=== PATIENT | female | born 1945 | race Caucasian/White ===

== ENCOUNTER → 2022-12-13 | Outpatient (CLI) | payer MEDICARE, OTHER ==
--- NOTE | 2022-12-13 09:00 | CT ---
EXAMINATION TYPE: CT brain cspine wo con CT DLP: 1435 mGycm, Automated exposure control for dose reduction was used. DATE OF EXAM: 12/13/2022 8:04 AM COMPARISON: None.. CLINICAL INDICATION:Female, 77 years old with history of R51.9 HEADACHE M54.2 CERVICALGIA; Headache, Cervicalgia TECHNIQUE: Brain: Multiple axial CT images of the brain were obtained without IV contrast. Cspine: Axial CT images from the skull base to the inferior aspect of T2 we obtained without intraven ous contrast. Coronal and sagittal reformatted images were also reviewed. FINDINGS: Brain: Extra-axial spaces: No abnormal extra-axial fluid collections. Ventricular system: Within normal limits Cerebral parenchyma: Cerebral atrophy. Remote bilateral inferior frontal lobe injuries with encephalo malacia. No acute intraparenchymal hemorrhage or mass effect. The porter-white junction is well differ entiated. Scattered hypoattenuating areas are seen within the white matter. Cerebellum: Unremarkable. Mass effect: No evidence of midline shift. Intracranial vasculature: Atherosclerotic calcifications of the intracranial vessels. Soft tissues: Normal. Calvarium/osseous structures: No depressed skull fracture. Paranasal sinuses and mastoid air cells: Clear. Aplasia of the right frontal sinus. Visualized orbits: Bilateral aphakia Cervical spine: Fracture: None. Osseous structures: Disc space narrowing with endplate sclerosis and anterior osteophytosis at C5-C6. Vertebral alignment: Minimal grade 1 anterolisthesis of C3 on C4. Spinal canal/Neural Foramina: Posterior disc osteophyte complex at C4-C5 with mild effacement of ante rior thecal sac. Central disc protrusion at C3-C4 with mild effacement of anterior thecal sac. Broad- based disc bulge at C5-C6 with mild effacement of anterior thecal sac. Eccentric left broad-based dis c bulge at C6-C7 with mild effacement of anterior thecal sac. No evidence for significant neural fora lyle stenosis. Neck soft tissues: Prevertebral soft tissues are within normal limits. Other: The airway is patent. Mild atherosclerotic calcification of the bilateral carotid bulbs. Hypod ense 8 mm nodule within the right thyroid lobe. IMPRESSION: 1. No acute intracranial process. 2. Nonspecific white matter changes, likely secondary to chronic small vessel ischemic disease. 3. 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 4. No evidence of cervical spine fracture. 5. Mild multilevel degenerative disc disease as described above.
== END | disposition home or self-care (01) ==
LOC: RADCTMAIN 07:30
PROVIDERS: ATTEND Family Medicine
DX: M50.322 Other cervical disc degeneration at C5-C6 level (principal); G93.89 Other specified disorders of brain; R90.82 White matter disease, unspecified
CPT/HCPCS: 70450; 72125

== ENCOUNTER → 2023-09-13 | Outpatient (CLI) | payer MEDICARE, OTHER ==
[2023-09-13 15:20] LABS: Basophils # (A) 0.03 X 10*3/uL (0.00-0.10); Basophils % (A) 0.6 %; Eosinophils # (A) 0.11 X 10*3/uL (0.04-0.35); Eosinophils % (A) 2.1 %; HCT 36.2 % (37.2-46.3); HGB 11.9 g/dL (12.0-15.0); Lymphocytes # (A) 1.02 X 10*3/uL (0.90-5.00); Lymphocytes % (A) 19.2 %; MCH 30.5 pg (27.0-32.0); MCHC 32.9 g/dL (32.0-37.0); MCV 92.8 FL (80.0-97.0); Mean Platelet Volume 9.8 FL (9.5-12.2); Monocytes # (A) 0.54 X 10*3/uL (0.20-1.00); Monocytes % (A) 10.2 %; NRBC Per 100 WBC 0 X 10*3/uL (0.00-0.01); Neutrophils # (A) 3.61 X 10*3/uL (1.80-7.70); Neutrophils % (A) 67.7 %; Platelet Count 316 X 10*3/uL (140-440); RDW 13.1 % (11.5-14.5); WBC 5.32 X 10*3/uL (4.50-10.00)
[2023-09-13 15:49] LABS: BUN/Creat Ratio 12.82 Ratio (12.00-20.00); Blood Urea Nitrogen 14.1 mg/dL (9.0-27.0); Carbon Dioxide 23.7 mmol/L (21.6-31.8); Chloride 97 mmol/L (96-109); Chol/HDL Ratio 1.71 Ratio; Glucose 97 mg/dL (70-110); LDL Cholesterol,Calculated 68.9 mg/dL (0.0-131.0); Potassium 5.2 mmol/L (3.5-5.5); Sodium 132 mmol/L (135-145); VLDL Calculation 18.12 mg/dL (5.00-40.00)
[2023-09-13 15:50] LABS: ALT 13 U/L (8-44); AST 20 U/L (13-35); Albumin 4.6 g/dL (3.8-4.9); Albumin/Globulin Ratio 2.19 Ratio (1.60-3.17); Alkaline Phosphatase 49 U/L (41-126); Calcium 9.9 mg/dL (8.7-10.3); Globulin 2.1 g/dL (1.6-3.3); Total Bilirubin 0.4 mg/dL (0.3-1.2); Total Protein 6.7 g/dL (6.2-8.2)
== END | disposition home or self-care (01) ==
LOC: LABWHC1 08:16
PROVIDERS: ATTEND Family Medicine
DX: Z11.59 Encounter for screening for other viral diseases (principal); I10 Essential (primary) hypertension; E78.5 Hyperlipidemia, unspecified; E87.6 Hypokalemia; E55.9 Vitamin D deficiency, unspecified
CPT/HCPCS: 36415; 80053; 80061; 82306; 85025; 86803

== ENCOUNTER → 2023-12-31 | Outpatient (CLI) | payer MEDICARE, OTHER | END | disposition home or self-care (01) | LOC: LABWHC1 07:07 | PROVIDERS: ATTEND Psychiatry & Neurology Neurology | DX: Z01.810 Encounter for preprocedural cardiovascular examination | CPT/HCPCS: 93005 ==

== ENCOUNTER 2024-09-13 14:06 | Observation (INO) | payer MEDICARE, OTHER ==
--- NOTE | 2024-09-13 14:37 | ED ---
General Adult HPI - General Chief complaint: Back Pain/Injury Stated complaint: back pain Time Seen by Provider: 09/13/24 14:18 Source: patient, EMS, RN notes reviewed Mode of arrival: EMS Limitations: no limitations - History of Present Illness Initial comments: This is a 79-year-old female with history including hypertension, hyperlipidemia and OA presenting with neighbor via EMS for back pain (10/06). Patient states she has a history of chronic back pain extending from her neck to her lumbar region. States she has a history of spinal arthritis and bulging cervical disc among other things. Patient states she currently takes hydrocodone 10 mg twice daily. Patient states she had a pain pump placed in her left abdomen on 09/10/2024, stating she must wait 1 month before the pump will be operational for pain management. Patient notes that she suffered a syncopal event at the base of her stairs last night around 2100, waking and crawling up the stairs to her phone, contacting her neighbor who stated that patient appeared very porter at the time but looks better now. Patient denies prior or current chest pain, shortness of breath, diaphoresis, dizziness. States she has been constipated recently as well. Patient received 75 mcg fentanyl and 4 mg Zofran by EMS prior to ER arrival. Patient denies fever, chills, vision changes, unilateral paresthesia/hemiplegia, urinary symptoms. Onset/Timin -: days(s) - Related Data Home Medications Medication Instructions Recorded Confirmed Alendronate Sodium [Fosamax] 70 mg PO WE 09/13/24 09/13/24 Aspirin EC [Ecotrin Low Dose] 81 mg PO DAILY 09/13/24 09/13/24 Cephalexin [Keflex] 500 mg PO TID 09/13/24 09/13/24 Famotidine [Pepcid] 40 mg PO DAILY 09/13/24 09/13/24 HYDROcodone/APAP 10-325MG [[place] 1 tab PO BID PRN 09/13/24 09/13/24 10-325] Irbesartan [Avapro] 300 mg PO DAILY 09/13/24 09/13/24 Pantoprazole Sodium [Protonix] 20 mg PO DAILY 09/13/24 09/13/24 Rosuvastatin Calcium 5 mg PO DAILY 09/13/24 09/13/24 amLODIPine [Norvasc] 2.5 mg PO DAILY 09/13/24 09/13/24 Allergies Allergy/AdvReac Type Severity Reaction Status Date / Time morphine AdvReac Itching Verified 09/13/24 18:13 Review of Systems ROS Statement: Those systems with pertinent positive or pertinent negative responses have been documented in the HPI. ROS Other: All systems not noted in ROS Statement are negative. Past Medical History Past Medical History: Hyperlipidemia, Hypertension, Osteoarthritis (OA) History of Any Multi-Drug Resistant Organisms: None Reported Past Surgical History: Hysterectomy, Orthopedic Surgery Additional Past Surgical History / Comment(s): back surgery, left wrist, right thumb Past Psychological History: No Psychological Hx Reported Smoking Status: Former smoker Past Alcohol Use History: Rare Past Drug Use History: None Reported General Exam Limitations: no limitations General appearance: alert, in distress Head exam: Present: atraumatic, normocephalic, normal inspection Eye exam: Present: normal appearance, PERRL, EOMI. Absent: scleral icterus, conjunctival injection, periorbital swelling ENT exam: Present: normal exam, mucous membranes moist Neck exam: Present: normal inspection. Absent: tenderness, meningismus, lymphadenopathy Respiratory exam: Present: normal lung sounds bilaterally. Absent: respiratory distress, wheezes, rales, rhonchi, stridor Cardiovascular Exam: Present: regular rate, normal rhythm, normal heart sounds. Absent: systolic murmur, diastolic murmur, rubs, gallop, clicks GI/Abdominal exam: Present: soft, tenderness (Positive tenderness around LLQ surgical incision site without surrounding erythema, edema, discharge, warmth.), normal bowel sounds, other (13 david noted with good alignment of laceration edges with no obvious signs of infection and LLQ.). Absent: distended, guarding, rebound, rigid Extremities exam: Present: normal inspection, full ROM, normal capillary refill. Absent: tenderness, pedal edema, joint swelling, calf tenderness Back exam: Present: normal inspection, vertebral tenderness (Patient notes diffuse spinal tenderness without obvious crepitus or step-off.), other (3 cm vertical surgical incision of left mid thoracic back with 3 david noted without surrounding erythema, warmth, tenderness, discharge.) Neurological exam: Present: alert, oriented X3, CN II-XII intact Psychiatric exam: Present: normal affect, normal mood Skin exam: Present: warm, dry, intact, normal color. Absent: rash Course Vital Signs 09/13/24 09/13/24 09/13/24 14:07 18:22 20:51 Temperature 98.8 F 98.4 F Pulse Rate 84 87 76 Respiratory 20 16 22 Rate Blood Pressure 147/76 117/64 142/66 O2 Sat by Pulse 100 98 100 Oximetry Medical Decision Making - Medical Decision Making Was pt. sent in by a medical professional or institution (, PA, [employer], urgent care, hospital, or [place] health care facility...) When possible be specific @ -No Did you speak to anyone other than the patient for history (EMS, parent, family, police, friend...)? What history was obtained from this source @ -No Did you review nursing and triage notes (agree or disagree)? Why? @ -I reviewed and agree with nursing and triage notes Were old charts reviewed (outside hosp., previous admission, EMS record, old EKG, old radiological studies, urgent care reports/EKG's, [place] health care facility records)? Report findings @ -No old charts were reviewed Differential Diagnosis (chest pain, altered mental status, abdominal pain women, abdominal pain men, vaginal bleeding, weakness, fever, dyspnea, syncope, headache, dizziness, GI bleed, back pain, seizure, CVA, palpatations, mental health, musculoskeletal)? @ -Differential Syncope: Valvular disease, hypertrophic cardiomyopathy, pulmonary embolism, tamponade, tachycardia, bradycardia, MD, hypovolemia, hemorrhage, dissection, anemia, intracranial hemorrhage, seizure, hypoglycemia, carbon monoxide poisoning, this is not meant to be an all-inclusive list. EKG interpreted by me (3pts min.). @ -Sinus rhythm with solitary PVC without ST deviation or T wave inversion. Ventricular rate 86 bpm, CONSUELO 177 ms, QRS 80 ms, QTc 396 ms. X-rays interpreted by me (1pt min.). @ -CXR shows no acute cardiopulmonary process CT interpreted by me (1pt min.). @ -Abdomen/pelvic CT shows significantly impacted rectal stool with rectal wall thickening and adjacent fat stranding indicating stercoral colitis. Moderate compression deformity of L1 vertebrae and moderate size hiatal hernia also noted. U/S interpreted by me (1pt. min.). @ -None done What testing was considered but not performed or refused? (CT, X-rays, U/S, labs)? Why? @ -None What meds were considered but not given or refused? Why? @ -Patient declined IV Toradol, endorsing concern for effect to kidney function Did you discuss the management of the patient with other professionals (professionals i.e. , PA, [employer], lab, RT, psych nurse, protective services social worker, fill plant operator, teacher, gift officer, porter sample case)? Give summary @ - Spoke to Indy Manning from [facility] for inpatient admission and surgery consults placed. Was smoking cessation discussed for >3mins.? @ -No Was critical care preformed (if so, how long)? @ -No Were there social determinants of health that impacted care today? How? (Homelessness, low income, unemployed, alcoholism, drug addiction, transportation, low edu. Level, literacy, decrease access to med. care, half-way, rehab)? @ -No Was there de-escalation of care discussed even if they declined (Discuss DNR or withdrawal of care, Hospice)? DNR status @ -No What co-morbidities impacted this encounter? (DM, HTN, Smoking, COPD, CAD, Cancer, CVA, ARF, Chemo, Hep., AIDS, mental health diagnosis, sleep apnea, morbid obesity)? @ -Hypertension, hyperlipidemia, chronic back pain Was patient admitted / discharged? Hospital course, mention meds given and route, prescriptions, significant lab abnormalities, going to OR and other pertinent info. @ -Lab work positive for leukocytosis 15.57 with left shift. Stable anemia of 11.1. Hyponatremia 128 and hyperglycemia 123. UA unremarkable. Patient in itially provided IV normal saline, Toradol and Dilaudid with pain relief noted by patient. CXR shows no acute cardiopulmonary process. Abdomen/pelvic CT shows significantly impacted rectal stool with rectal wall thickening and adjacent fat stranding indicating stercoral colitis. Moderate compression deformity of L1 vertebrae and moderate size hiatal hernia also noted. Patient received 75 mcg IV fentanyl from EMS along with 4 mg Zofran. Patient initially provided IV normal saline, Toradol and Dilaudid with pain relief noted by patient. Patient started on IV Zosyn and provided additional Dilaudid prior to enema administration. Spoke to Indy Manning from [facility] for inpatient admission and s urgery consults placed. Discussed patient with Dr. Friedman. Undiagnosed new problem with uncertain prognosis? @ -No Drug Therapy requiring intensive monitoring for toxicity (Heparin, Nitro, Insulin, Cardizem)? @ -No Were any procedures done? @ -No Diagnosis/symptom? @ -Stercoral colitis, constipation, L1 compression fracture Acute, or Chronic, or Acute on Chronic? @ -Acute on chronic Uncomplicated (without systemic symptoms) or Complicated (systemic symptoms)? @ -Complicated Side effects of treatment? @ -No Exacerbation, Progression, or Severe Exacerbation? @ -No Poses a threat to life or bodily function? How? (Chest pain, USA, MD, pneumonia, PE, COPD, DKA, ARF, appy, cholecystitis, CVA, Diverticulitis, Homicidal, Suicidal, threat to staff... and all critical care pts) @ -Stercoral colitis, potential for colonic rupture - Lab Data Result diagrams: 09/13/24 15:04 09/13/24 15:04 Lab Results 09/13/24 09/13/24 09/13/24 Range/Units 15:04 15:04 15:04 WBC 15.57 H (4.50-10.00) 10*3/uL RBC 3.39 L (4.10-5.20) 10*6/uL Hgb 11.1 L (12.0-15.0) g/dL Hct 30.6 L (37.2-46.3) % MCV 90.3 (80.0-97.0) fL MCH 32.7 H (27.0-32.0) pg MCHC 36.3 (32.0-37.0) g/dL Plt Count 296 (140-440) 10*3/uL MPV 9.1 L (9.5-12.2) fL Immature Gran % (Auto) 0.4 % Neutrophils % 92.5 % Lymphocytes % 2.1 % Monocytes % 4.8 % Eosinophils % 0.0 % Basophils % 0.2 % Immature Gran # 0.06 H (0.00-0.04) 10*3/uL Neutrophils # 14.41 H (1.80-7.70) 10*3/uL Lymphocytes # 0.32 L (0.90-5.00) 10*3/uL Monocytes # 0.75 (0.20-1.00) 10*3/uL Eosinophils # 0.00 L (0.04-0.35) 10*3/uL Basophils # 0.03 (0.00-0.10) 10*3/uL PT 10.1 (10.0-12.5) sec INR 0.9 (<1.2) APTT 21.5 L (22.0-30.0) sec Sodium 128 L (137-145) mmol/L Potassium 3.9 (3.5-5.1) mmol/L Chloride 96 L (98-107) mmol/L Carbon Dioxide 22 (22-30) mmol/L Anion Gap 10 mmol/L BUN 18 H (7-17) mg/dL Creatinine 1.04 (0.52-1.04) mg/dL Est GFR (CKD-EPI)AfAm 60 (>60 ml/min/1.73 sqM) Est GFR (CKD-EPI)NonAf 52 (>60 ml/min/1.73 sqM) Glucose 106 H (74-99) mg/dL Calcium 9.8 (8.4-10.2) mg/dL Magnesium 1.8 (1.6-2.3) mg/dL Total Bilirubin 0.6 (0.2-1.3) mg/dL AST 23 (14-36) U/L ALT 19 (4-34) U/L Alkaline Phosphatase 56 (38-126) U/L Troponin I (0.000-0.034) ng/mL Total Protein 6.0 L (6.3-8.2) g/dL Albumin 3.8 (3.5-5.0) g/dL Urine Color Urine Appearance (Clear) Urine pH (5.0-8.0) Ur Specific [place] (1.001-1.035) Urine Protein (Negative) Urine Glucose (UA) (Negative) Urine Ketones (Negative) Urine Blood (Negative) Urine Nitrite (Negative) Urine Bilirubin (Negative) Urine Urobilinogen (<2.0) mg/dL Ur Leukocyte Esterase (Negative) 09/13/24 09/13/24 Range/Units 15:04 17:35 WBC (4.50-10.00) 10*3/uL RBC (4.10-5.20) 10*6/uL Hgb (12.0-15.0) g/dL Hct (37.2-46.3) % MCV (80.0-97.0) fL MCH (27.0-32.0) pg MCHC (32.0-37.0) g/dL Plt Count (140-440) 10*3/uL MPV (9.5-12.2) fL Immature Gran % (Auto) % Neutrophils % % Lymphocytes % % Monocytes % % Eosinophils % % Basophils % % Immature Gran # (0.00-0.04) 10*3/uL Neutrophils # (1.80-7.70) 10*3/uL Lymphocytes # (0.90-5.00) 10*3/uL Monocytes # (0.20-1.00) 10*3/uL Eosinophils # (0.04-0.35) 10*3/uL Basophils # (0.00-0.10) 10*3/uL PT (10.0-12.5) sec INR (<1.2) APTT (22.0-30.0) sec Sodium (137-145) mmol/L Potassium (3.5-5.1) mmol/L Chloride (98-107) mmol/L Carbon Dioxide (22-30) mmol/L Anion Gap mmol/L BUN (7-17) mg/dL Creatinine (0.52-1.04) mg/dL Est GFR (CKD-EPI)AfAm (>60 ml/min/1.73 sqM) Est GFR (CKD-EPI)NonAf (>60 ml/min/1.73 sqM) Glucose (74-99) mg/dL Calcium (8.4-10.2) mg/dL Magnesium (1.6-2.3) mg/dL Total Bilirubin (0.2-1.3) mg/dL AST (14-36) U/L ALT (4-34) U/L Alkaline Phosphatase (38-126) U/L Troponin I <0.012 (0.000-0.034) ng/mL Total Protein (6.3-8.2) g/dL Albumin (3.5-5.0) g/dL Urine Color Yellow Urine Appearance Clear (Clear) Urine pH 7.0 (5.0-8.0) Ur Specific [place] 1.018 (1.001-1.035) Urine Protein Trace H (Negative) Urine Glucose (UA) Negative (Negative) Urine Ketones 1+ H (Negative) Urine Blood Negative (Negative) Urine Nitrite Negative (Negative) Urine Bilirubin Negative (Negative) Urine Urobilinogen <2.0 (<2.0) mg/dL Ur Leukocyte Esterase Negative (Negative) Disposition Clinical Impression: Stercoral colitis, Constipation Disposition: ADMITTED IP TO THIS HOSP Condition: Fair Time of Disposition: 17:45 Decision Date: 09/13/24 Decision Time: 17:45
[2024-09-13 15:12] LABS: Basophils # (A) 0.03 10*3/uL (0.00-0.10); Basophils % (A) 0.2 %; HCT 30.6 % (37.2-46.3); HGB 11.1 g/dL (12.0-15.0); Lymphocytes # (A) 0.32 10*3/uL (0.90-5.00); Lymphocytes % (A) 2.1 %; MCH 32.7 pg (27.0-32.0); MCHC 36.3 g/dL (32.0-37.0); MCV 90.3 fL (80.0-97.0); Mean Platelet Volume 9.1 fL (9.5-12.2); Monocytes # (A) 0.75 10*3/uL (0.20-1.00); Monocytes % (A) 4.8 %; Neutrophils # (A) 14.41 10*3/uL (1.80-7.70); Neutrophils % (A) 92.5 %; Platelet Count 296 10*3/uL (140-440); RBC 3.39 10*6/uL (4.10-5.20); RDW 13.4 % (11.5-14.5); WBC 15.57 10*3/uL (4.50-10.00)
[2024-09-13 15:22] LABS: INR 0.9 (<1.2); Partial Thromboplastin Time 21.5 sec (22.0-30.0); Prothrombin Time 10.1 sec (10.0-12.5)
[2024-09-13 15:28] LABS: ALT 19 U/L (4-34); AST 23 U/L (14-36); African American GFR (CKD) 60 (>60 ml/min/1.73 sqM); Albumin 3.8 g/dL (3.5-5.0); Alkaline Phosphatase 56 U/L (38-126); Anion Gap 10 mmol/L; Blood Urea Nitrogen 18 mg/dL (7-17); Calcium 9.8 mg/dL (8.4-10.2); Carbon Dioxide 22 mmol/L (22-30); Chloride 96 mmol/L (98-107); Glucose 106 mg/dL (74-99); Magnesium 1.8 mg/dL (1.6-2.3); Non-African American GFR(CKD) 52 (>60 ml/min/1.73 sqM); Potassium 3.9 mmol/L (3.5-5.1); Sodium 128 mmol/L (137-145); Total Bilirubin 0.6 mg/dL (0.2-1.3)
[2024-09-13] MEDS: SODIUM CHLORIDE 0.9% 500 ML 500 ML IV STA (15:41)
[2024-09-13] MEDS: SODIUM CHLORIDE 0.9% 1,000 ML IV STA (15:41)
[2024-09-13] MEDS: KETOROLAC 15 MG/ML 1 ML VIAL IVP STA (15:44)
[2024-09-13] MEDS: HYDROmorphone 0.5 MG/0.5 ML SYRINGE IVP STA ×2 (15:44→18:18)
--- NOTE | 2024-09-13 16:23 | XR ---
EXAMINATION TYPE: XR chest 2V DATE OF EXAM: 09/13/2024 4:12 PM COMPARISON: None. CLINICAL INDICATION: Female, 79 years old with history of syncope; [facility] TECHNIQUE: XR chest 2V Frontal and lateral views of the chest. FINDINGS: Lungs/Pleura: There is no evidence of pleural effusion, focal consolidation, or pneumothorax. Pulmonary vascularity: Unremarkable. Heart/mediastinum: Cardiomediastinal silhouette is unremarkable. Musculoskeletal: No acute osseous pathology. Other findings: Spinal stimulator device present. IMPRESSION: No acute cardiopulmonary disease/process. [facility], , 09/13/2024 4:21 PM
--- NOTE | 2024-09-13 17:26 | CT ---
EXAMINATION TYPE: CT abdomen pelvis w con DATE OF EXAM: 09/13/2024 5:16 PM COMPARISON: None available. CLINICAL INDICATION: Female, 79 years old with history of Diffuse abdominal tenderness; severe lower back and neck pain, problems with urination TECHNIQUE: Axial CT abdomen pelvis w con;Sagittal and coronal reformats were created on a separate w orkstation. Contrast used:80 ml mL of Isovue 300 with IV Contrast, (none if empty) Oral contrast used: without Oral Contrast (none if empty) CT DLP: 897 mGycm, Automated exposure control for dose reduction was used. FINDINGS: LOWER CHEST: Unremarkable ABDOMEN LIVER: Unremarkable GALLBLADDER AND BILE DUCTS: Unremarkable. PANCREAS: Unremarkable. SPLEEN: Unremarkable. ADRENAL GLANDS: Unremarkable. KIDNEYS AND URETERS: No evidence of hydronephrosis or renal calculus. The ureters are unremarkable. Simple appearing cyst in the left kidney. PELVIS BLADDER: No evidence for wall thickening or mass given limitations of exam. REPRODUCTIVE: The uterus is surgically absent. ABDOMEN & PELVIS STOMACH AND BOWEL: Moderate sized central hernia. Significantly impacted stool in the rectum with ass ociated rectal wall thickening and adjacent fat stranding/acute inflammation.Colonic diverticulosis w ithout acute diverticulitis. No evidence of bowel obstruction. PERITONEUM/RETROPERITONEUM: No evidence of pneumoperitoneum or free fluid. VASCULATURE: No evidence of aortic aneurysm. MUSCULOSKELETAL: Posterior fusion hardware involving the thoracic or lumbar spine with moderate age-i ndeterminate L1 vertebral body compression deformity. Osseous structures are diffusely demineralized. LYMPH NODES: No gross evidence for lymphadenopathy. SOFT TISSUE/ABDOMINAL WALL: Unremarkable IMPRESSION: 1. Significantly impacted rectal stool with additional findings suggesting stercoral colitis. 2. Age-indeterminate moderate compression deformity of the L1 vertebral body. 3. Moderate-sized hiatal hernia. 4. Additional nonacute findings as above. [facility], , 09/13/2024 5:24 PM
[2024-09-13] MEDS ORDERED: NALOXONE 0.4 MG/ML 1 ML VIAL IV PRN (18:08)
[2024-09-13] MEDS ORDERED: ONDANSETRON 4 MG/2 ML VIAL IVP PRN (18:08)
[2024-09-13] MEDS: HYDROmorphone 1 MG/ML 1 ML SYRINGE IVP STA (18:09)
[2024-09-13 18:11] LABS: Appearance,Urine Clear (Clear); Bilirubin,Urine Negative (Negative); Blood,Urine Negative (Negative); Color,Urine Yellow; Glucose,Urine (UA) Negative (Negative); Ketones,Urine 1+ (Negative); Leukocyte Esterase,Urine Negative (Negative); Nitrite,Urine Negative (Negative); Protein,Urine Trace (Negative); Specific Gravity,Urine 1.018 (1.001-1.035); Urobilinogen,Urine <2.0 mg/dL (<2.0)
[2024-09-13] MEDS: SODIUM CHLORIDE 0.9% 1,000 ML IV SCH (18:25)
[2024-09-13] MEDS: PIPERACILLIN-TAZOBACTAM 3.375 GM in SODIUM CHLORIDE 0.9% 100 ML IVPB STA (18:32)
[2024-09-13 19:28] LABS: Glucose,Whole Blood 123 mg/dL (70-110)
[2024-09-13] MEDS: HYDROmorphone 0.5 MG/0.5 ML SYRINGE IVP PRN (23:25)
[2024-09-14] MEDS: ACETAMINOPHEN TAB 325 MG TAB PO PRN (06:34)
--- NOTE | 2024-09-14 12:10 | P.GSCN ---
History of Present Illness Consult date: 09/14/24 History of present illness: CHIEF COMPLAINT: Abdominal pain and back pain HISTORY OF PRESENT ILLNESS: This is a 79-year-old female who presented with back pain from her neck to the lumbar spine and some abdominal discomfort. She reports that she has been constipated and unable to have a bowel movement for 4 days. She just had a pain pump placed on the 15th for her chronic back pain. She does take Stephen at home for her pain. She had a CT scan abdomen pelvis that reported significantly impacted rectal stool with additional findings suggesting stercoral colitis. Age-indeterminate moderate compression deformity of L1. Moderate size hiatal hernia. Patient did receive enemas in the ER did have 2 large bowel movements. She reports the abdominal pressure and lower back pain are better. Now she is just feeling the chronic back pain. She is having flatus. Denies any nausea or vomiting. She has been able to tolerate some liquids. She does not like the eggs that were given for breakfast. She is requesting toast and coffee. Patient wants to be discharged she is feeling better. She feels that the bed is bothering her back. PAST MEDICAL HISTORY: Hyperlipidemia, Hypertension, Osteoarthritis (OA) PAST SURGICAL HISTORY: Hysterectomy MEDICATIONS: See below ALLERGIES: See below SOCIAL HISTORY: No illicit drug use. REVIEW OF SYSTEMS: CONSTITUTIONAL: Denies fever or chills. HEENT: Denies blurred vision, vision changes, or eye pain. Denies hemoptysis CARDIOVASCULAR: Denies chest pain or pressure. RESPIRATORY: No shortness of breath. GASTROINTESTINAL: See HPI for pertinent findings HEMATOLOGIC: Denies bleeding disorders. GENITOURINARY: Denies any blood in urine or increased urinary frequency. SKIN: Denies pruitis. Denies rash. PHYSICAL EXAM: VITAL SIGNS: Reviewed GENERAL: Well-developed in no acute distress. HEENT: No sclera icterus. Extraocular movements grossly intact. Moist buccal mucosa. Head is atraumatic, normocephalic. No nasal drainage. ABDOMEN: Soft. Nondistended. Nontender. New pain pump noted on the left. Incision with david clean dry and intact. NEUROLOGIC: Alert and oriented. Cranial nerves II through XII grossly intact. LABORATORY DATA: WBC 15.57 Hgb 11.1 platelets 296 Sodium 128 potassium 3.9 creatinine 1.04 IMAGING: CT scan abdomen pelvis reports significantly impacted rectal stool with additional findings suggesting stercoral colitis. Age-indeterminate moderate compression deformity at L1 moderate size hiatal hernia. ASSESSMENT: 1. Constipation with impacted rectal stool. Patient having bowel movements. 2. Narcotic use 3. Chronic back pain PLAN: - Patient having bowel movements. Discussed with nursing staff to give patient coffee and toast. As long she is tolerating diet okay for discharge - Recommend being on a good bowel regimen at home with Metamucil and stool s oftener Physician Helper Driver note has been reviewed by physician. Signing provider agrees with the documented findings, assessment, and plan of care. Past Medical History Past Medical History: Hyperlipidemia, Hypertension, Osteoarthritis (OA) History of Any Multi-Drug Resistant Organisms: None Reported Past Surgical History: Hysterectomy, Orthopedic Surgery Additional Past Surgical History / Comment(s): back surgery, left wrist, right thumb Past Psychological History: No Psychological Hx Reported Smoking Status: Former smoker Past Alcohol Use History: Rare Past Drug Use History: None Reported Medications and Allergies Home Medications Medication Instructions Recorded Confirmed Type Alendronate Sodium [Fosamax] 70 mg PO WE 09/13/24 09/13/24 History Aspirin EC [Ecotrin Low Dose] 81 mg PO DAILY 09/13/24 09/13/24 History Cephalexin [Keflex] 500 mg PO TID 09/13/24 09/13/24 History Famotidine [Pepcid] 40 mg PO DAILY 09/13/24 09/13/24 History HYDROcodone/APAP 10-325MG [[place] 1 tab PO BID PRN 09/13/24 09/13/24 History 10-325] Irbesartan [Avapro] 300 mg PO DAILY 09/13/24 09/13/24 History Pantoprazole Sodium [Protonix] 20 mg PO DAILY 09/13/24 09/13/24 History Rosuvastatin Calcium 5 mg PO DAILY 09/13/24 09/13/24 History amLODIPine [Norvasc] 2.5 mg PO DAILY 09/13/24 09/13/24 History Allergies Allergy/AdvReac Type Severity Reaction Status Date / Time morphine AdvReac Itching Verified 09/13/24 18:13 Surgical - Exam Vital Signs Temp Pulse Resp BP Pulse Ox 98.8 F 84 20 147/76 100 09/13/24 14:07 09/13/24 14:07 09/13/24 14:07 09/13/24 14:07 09/13/24 14:07 Results - Labs 09/13/24 15:04 09/13/24 15:04 Abnormal Lab Results - Last 24 Hours (Table) 09/13/24 09/13/24 09/13/24 Range/Units 15:04 15:04 15:04 WBC 15.57 H (4.50-10.00) 10*3/uL RBC 3.39 L (4.10-5.20) 10*6/uL Hgb 11.1 L (12.0-15.0) g/dL Hct 30.6 L (37.2-46.3) % MCH 32.7 H (27.0-32.0) pg MPV 9.1 L (9.5-12.2) fL Immature Gran # 0.06 H (0.00-0.04) 10*3/uL Neutrophils # 14.41 H (1.80-7.70) 10*3/uL Lymphocytes # 0.32 L (0.90-5.00) 10*3/uL Eosinophils # 0.00 L (0.04-0.35) 10*3/uL APTT 21.5 L (22.0-30.0) sec Sodium 128 L (137-145) mmol/L Chloride 96 L (98-107) mmol/L BUN 18 H (7-17) mg/dL Glucose 106 H (74-99) mg/dL POC Glucose (mg/dL) (70-110) mg/dL Total Protein 6.0 L (6.3-8.2) g/dL Urine Protein (Negative) Urine Ketones (Negative) 09/13/24 09/13/24 Range/Units 17:35 19:26 WBC (4.50-10.00) 10*3/uL RBC (4.10-5.20) 10*6/uL Hgb (12.0-15.0) g/dL Hct (37.2-46.3) % MCH (27.0-32.0) pg MPV (9.5-12.2) fL Immature Gran # (0.00-0.04) 10*3/uL Neutrophils # (1.80-7.70) 10*3/uL Lymphocytes # (0.90-5.00) 10*3/uL Eosinophils # (0.04-0.35) 10*3/uL APTT (22.0-30.0) sec Sodium (137-145) mmol/L Chloride (98-107) mmol/L BUN (7-17) mg/dL Glucose (74-99) mg/dL POC Glucose (mg/dL) 123 H (70-110) mg/dL Total Protein (6.3-8.2) g/dL Urine Protein Trace H (Negative) Urine Ketones 1+ H (Negative) Diabetes panel 09/13/24 Range/Units 15:04 Sodium 128 L (137-145) mmol/L Potassium 3.9 (3.5-5.1) mmol/L Chloride 96 L (98-107) mmol/L Carbon Dioxide 22 (22-30) mmol/L BUN 18 H (7-17) mg/dL Creatinine 1.04 (0.52-1.04) mg/dL Glucose 106 H (74-99) mg/dL Calcium 9.8 (8.4-10.2) mg/dL AST 23 (14-36) U/L ALT 19 (4-34) U/L Alkaline Phosphatase 56 (38-126) U/L Total Protein 6.0 L (6.3-8.2) g/dL Albumin 3.8 (3.5-5.0) g/dL Calcium panel 09/13/24 Range/Units 15:04 Calcium 9.8 (8.4-10.2) mg/dL Albumin 3.8 (3.5-5.0) g/dL Pituitary panel 09/13/24 Range/Units 15:04 Sodium 128 L (137-145) mmol/L Potassium 3.9 (3.5-5.1) mmol/L Chloride 96 L (98-107) mmol/L Carbon Dioxide 22 (22-30) mmol/L BUN 18 H (7-17) mg/dL Creatinine 1.04 (0.52-1.04) mg/dL Glucose 106 H (74-99) mg/dL Calcium 9.8 (8.4-10.2) mg/dL Adrenal panel 09/13/24 Range/Units 15:04 Sodium 128 L (137-145) mmol/L Potassium 3.9 (3.5-5.1) mmol/L Chloride 96 L (98-107) mmol/L Carbon Dioxide 22 (22-30) mmol/L BUN 18 H (7-17) mg/dL Creatinine 1.04 (0.52-1.04) mg/dL Glucose 106 H (74-99) mg/dL Calcium 9.8 (8.4-10.2) mg/dL Total Bilirubin 0.6 (0.2-1.3) mg/dL AST 23 (14-36) U/L ALT 19 (4-34) U/L Alkaline Phosphatase 56 (38-126) U/L Total Protein 6.0 L (6.3-8.2) g/dL Albumin 3.8 (3.5-5.0) g/dL
[2024-09-14 12:22] LABS: Glucose,Whole Blood 105 mg/dL (70-110)
[2024-09-14] MEDS: DOCUSATE 100 MG CAP PO SCH (12:48)
[2024-09-14 15:29] VITALS: BP 117/64; PULSE 65; RESP 17; TEMP 97.8
--- NOTE | 2024-09-15 00:57 | HP ---
HISTORY AND PHYSICAL This is a combined history and physical and discharge summary. CHIEF COMPLAINT: Abdomen and back pain. HISTORY OF PRESENT ILLNESS: This is a 79-year-old woman with past medical history of multiple medical problems was admitted with abdomen and back pain. CAT scan showed Stercoral colitis and constipation. Surgery saw the patient, recommended outpatient followup. There is no history of fever, rigors, or chills at this time. The patient will be discharged with further plans to follow up with the primary physician and Vascular Surgery also. PAST MEDICAL HISTORY: Reviewed include hypertension, hyperlipidemia. Rest of the chart is also reviewed. HOME MEDICATIONS: Reviewed, include [place]. Doses and rest of medications reviewed. ALLERGIES: Morphine. FAMILY HISTORY: No history of heart disease or strokes in family. SOCIAL HISTORY: Remote smoking. REVIEW OF SYSTEMS: A 14-point review of systems negative except as mentioned earlier. PHYSICAL EXAMINATION: VITAL SIGNS: Pulse 62, blood pressure n respirations 19. HEENT: Conjunctivae normal. CARDIOVASCULAR: S1, S2. RESPIRATIONS: Breath sounds diminished at the bases. A few scattered rhonchi. ABDOMEN: Soft, nontender. No mass. LEGS: No edema. NEUROLOGIC: No focal deficits. LABORATORY DATA: Sodium 128. WBC 15.57. ASSESSMENT: 1. Stercoral colitis. 2. Constipation. 3. Back pain, DJD. 4. Hypertension. 5. Hyperlipidemia. 6. Increased WBC. RECOMMENDATIONS AND DISCUSSION: This is a 79-year-old woman, presented with multiple complex medical issues. Recommend to continue current medications. I would recommend a course of antibiotics, repeat labs in the outpatient setting. Surgery has cleared the patient for discharge. The patient might require further evaluation including colonoscopy at some point. We will continue to monitor. Follow with the primary physician. Described her medications. Recommend continue with the current medications, Colace and follow with . Follow up with Surgery for possible colonoscopy and Flagyl and Levaquin for 5 days. MMODL / IJN: [id number] / [facility]ITALAlhaji
--- NOTE | 2024-09-17 23:44 | P.DS ---
Providers Date of admission: 09/13/24 17:36 Expected date of discharge: 09/14/24 Attending physician: Laura Dasilva Consults: 09/13/24 18:27 Consult Physician Stat Consulting Provider: Aurelio Huitron Consult Reason/Comments: Stercoral colitis, constipation Do you want consulting provider notified?: Yes, Notify in am Primary care physician: Lavelle Julian Hospital Course: Final diagnosis Stercoral colitis noted on CT Constipation, improved after bowel regimen Back pain with history of degenerative joint disease History of hypertension History of hyperlipidemia GI prophylaxis DVT prophylaxis Full code Discharge disposition Patient is being discharged in a stable condition with guarded prognosis to home. Patient will follow-up with Dr. Hernandez in the outpatient setting upon discharge. Patient is to continue with current medications and recommend outpatient follow-up with vascular surgery and primary care provider as scheduled. Total time taken is greater than 35 minutes. Hospital course This is a 79 year-old female who was recently admitted noted to have significant constipation on imaging with stercoral colitis noted on CT. Patient evaluated by surgery and will need outpatient follow-up. Patient received an enema in the ER and has been having bowel movements and reports to feeling improved. Patient has been cleared for discharge home. Please refer to other consultation notes for further HPI. Currently no reports of chest pain, shortness of breath, or palpitations. Patient is afebrile. No reports of nausea or vomiting and patient is tolerating diet. Patient will be discharged home today. Guarded prognosis given significant comorbidities Physical exam: Gen: This is a 79-year-old female who is awake, alert and oriented x 3, well-developed, elderly appearing, thin built HEENT: Head is atraumatic, normocephalic. Pupils equal, round. Sclerae is anicteric. NECK: Supple. No JVD. No lymphadenopathy. No thyromegaly. LUNGS: Diminished breath sounds bilaterally otherwise clear to auscultation. No wheezes or rhonchi. No intercostal retractions. HEART: Regular rate and rhythm. No murmur. ABDOMEN: Soft. Nontender. Bowel sounds are present. No masses. No tenderness. EXTREMITIES: No pedal edema. No calf tenderness. NEUROLOGICAL: Patient is awake, alert and oriented x3. Cranial nerves 2 through 12 are grossly intact. Please refer to medication reconciliation sheet for a list of medications. The impression and plan of care has been dictated by Nisha Whalen, Nurse Practitioner as directed. Dr. Brown MD I have performed a history and examination and MDM of this patient, discussed the same with the dictator, and agree with the dictator's assessment and plan as written ,documented as a scribe. Based on total visit time, I have performed more than 50% of the visit. Patient Condition at Discharge: Fair Plan - Discharge Summary New Discharge Prescriptions: New Acetaminophen Tab [Tylenol] 650 mg PO Q6HR PRN tab PRN Reason: Mild Pain Or Fever > 100.5 Psyllium Husk [Metamucil] 0.4 gm PO DAILY 30 Days #30 capsule metroNIDAZOLE [Flagyl] 500 mg PO TID 7 Days #21 tab Docusate [Colace] 100 mg PO BID #60 cap Levofloxacin [Levaquin] 500 mg PO DAILY 7 Days #7 tab Continue Famotidine [Pepcid] 40 mg PO DAILY Aspirin EC [Ecotrin Low Dose] 81 mg PO DAILY Alendronate Sodium [Fosamax] 70 mg PO WE amLODIPine [Norvasc] 2.5 mg PO DAILY Pantoprazole Sodium [Protonix] 20 mg PO DAILY HYDROcodone/APAP 10-325MG [[place] 10-325] 1 tab PO BID PRN PRN Reason: Pain Rosuvastatin Calcium 5 mg PO DAILY Irbesartan [Avapro] 300 mg PO DAILY Discontinued Cephalexin [Keflex] 500 mg PO TID Discharge Medication List Alendronate Sodium [Fosamax] 70 mg PO WE 09/13/24 [History] Aspirin EC [Ecotrin Low Dose] 81 mg PO DAILY 09/13/24 [History] Famotidine [Pepcid] 40 mg PO DAILY 09/13/24 [History] HYDROcodone/APAP 10-325MG [[place] 10-325] 1 tab PO BID PRN 09/13/24 [History] Irbesartan [Avapro] 300 mg PO DAILY 09/13/24 [History] Pantoprazole Sodium [Protonix] 20 mg PO DAILY 09/13/24 [History] Rosuvastatin Calcium 5 mg PO DAILY 09/13/24 [History] amLODIPine [Norvasc] 2.5 mg PO DAILY 09/13/24 [History] Acetaminophen Tab [Tylenol] 650 mg PO Q6HR PRN tab 09/14/24 [Rx] Docusate [Colace] 100 mg PO BID #60 cap 09/14/24 [Rx] Levofloxacin [Levaquin] 500 mg PO DAILY 7 Days #7 tab 09/14/24 [Rx] Psyllium Husk [Metamucil] 0.4 gm PO DAILY 30 Days #30 capsule 09/14/24 [Rx] metroNIDAZOLE [Flagyl] 500 mg PO TID 7 Days #21 tab 09/14/24 [Rx] Follow up Appointment(s)/Referral(s): Lavelle Julian DO [Primary Care Provider] - 1-2 days Aurelio Huitron MD [STAFF PHYSICIAN] - 1 Week Ambulatory/Diagnostic Orders: Complete Blood Count w/diff [LAB.AMB] Time Frame: 3 Days, Location: None Selected Patient Instructions/Handouts: Constipation (DC) Activity/Diet/Wound Care/Special Instructions: Activity limited until follow-up Follow-up with primary care provider on discharge Continue with stool softener twice daily Increase fiber intake Discharge Disposition: HOME SELF-CARE
== END 2024-09-14 13:39 | disposition home or self-care (01) ==
LOC: EC 14:06 → 6NMEDSUR 17:36 → 1SOBS 09-14 05:44
PROVIDERS: ADMIT Hospitalist; ATTEND Hospitalist
DX: K52.89 Other specified noninfective gastroenteritis and colitis (principal); K56.41 Fecal impaction; I10 Essential (primary) hypertension; E78.5 Hyperlipidemia, unspecified; D72.829 Elevated white blood cell count, unspecified; E87.1 Hypo-osmolality and hyponatremia; R73.9 Hyperglycemia, unspecified; D64.9 Anemia, unspecified; K44.9 Diaphragmatic hernia without obstruction or gangrene; M48.56XA Collapsed vertebra, not elsewhere classified, lumbar region, initial encounter for fracture; M50.30 Other cervical disc degeneration, unspecified cervical region; M19.90 Unspecified osteoarthritis, unspecified site; M47.9 Spondylosis, unspecified; G89.29 Other chronic pain; R55 Syncope and collapse; Z79.82 Long term (current) use of aspirin; Z79.83 Long term (current) use of bisphosphonates; Z79.899 Other long term (current) drug therapy; Z88.5 Allergy status to narcotic agent; Z87.891 Personal history of nicotine dependence; Z97.8 Presence of other specified devices
CPT/HCPCS: 96376 ×3; 96361; 96365; 96375; 99285; 51798; 36415; 93005; 80053; 83735; 84484; 85025; 85610; 85730; 81003; 87040; 71046; 74177; G0378 ×3; J2543; J1171 ×2; Q9967